=== PATIENT | male | born 1975 ===

== ENCOUNTER 2018-01-08 06:48 | Inpatient (IN) | payer OTHER ==
[2018-01-07 13:25] VITALS: BMI 24.7
[2018-01-08] MEDS ORDERED: Thrombin Topical 5,000 Int Units Spray Kit ONE (07:22)
[2018-01-08] MEDS ORDERED: Bupivacaine HCl 0.25% PF (30 ml) Inj ONE (07:22)
[2018-01-08] MEDS ORDERED: Bacitracin Ointment 30 GM TUBE ONE (07:22)
[2018-01-08] MEDS ORDERED: Absorbable Gelatin Sponge Size 12-7 ONE (07:22)
[2018-01-08] MEDS ORDERED: APROTININ/FIBRINOGEN(TISSEEL) ONE (07:23)
[2018-01-08] MEDS ORDERED: Lactated Ringer's 1,000 ML IV ONE ×2 (07:30→10:05)
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
[2018-01-08] MEDS ORDERED: Propofol 10 mg/ml Inj (20 ML) ONE (08:05)
[2018-01-08] MEDS ORDERED: Rocuronium 10 mg/ml (5 ml) ONE (08:06)
[2018-01-08] MEDS ORDERED: Succinylcholine 200 mg/10 ml Inj IV ONE (08:06)
[2018-01-08] MEDS ORDERED: Lidocaine 4% (Laryng-O-Jet) Kit MM ONE (08:06)
[2018-01-08] MEDS ORDERED: Midazolam 2 MG/2 ML VIAL ONE (09:10)
[2018-01-08] MEDS ORDERED: ePHEDrine 50 mg/ml Inj ONE (09:10)
[2018-01-08] MEDS ORDERED: Dexamethasone 4 mg/1 ml ONE (09:42)
[2018-01-08] MEDS ORDERED: Sevoflurane - Inhalation Anesthetic Liq (250 ml) ONE (09:49)
[2018-01-08] MEDS ORDERED: HEMOSTATIC MATRIX 10 ML DIS.NEEDLE TOP ONE (09:50)
[2018-01-08] MEDS ORDERED: Neostigmine Methylsulfate 2 MG/2 ML ML IV ONE (10:01)
[2018-01-08] MEDS: HYDROmorphone 0.5 mg/0.5 ml ISec IVP PRN ×3 (11:18→12:25)
[2018-01-08] MEDS ORDERED: Oxycodone/Acetaminophen 5/325 mg Tab PO PRN (11:18)
[2018-01-08] MEDS ORDERED: Benzocaine/Menthol (Cepacol) Lozenge PO PRN (11:25)
[2018-01-08] MEDS ORDERED: Glucagon Recombinant 1 mg Inj IM PRN (15:37)
[2018-01-08] MEDS ORDERED: Dextrose 50% SYRINGE Inj (50 ml) IV PRN (15:37)
[2018-01-08] MEDS: Lactated Ringer's 1,000 ML IV SCH ×2 (16:53→20:39)
[2018-01-08] MEDS ORDERED: ceFAZolin 1 GM in Sodium Chloride 0.9% 100 ML IVPB SCH (17:00)
[2018-01-08] MEDS: Insulin Regular 100 units/ml SC SCH ×2 (18:01→21:27)
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
--- NOTE | 2018-01-09 01:21 | OP ---
PROCEDURE DATE: 01/08/2018 PREOPERATIVE DIAGNOSIS: Lumbar herniated disc at L4-5. POSTOPERATIVE DIAGNOSIS: Lumbar herniated disc at L4-5. PROCEDURE: Left L4-5 hemilaminotomy, medial facetectomy, and decompression. SURGEON: Dr. Ahumada. BORE MILL OPERATOR FOR PLASTIC: Marla Yo, physician assistant infant toddler teacher who helped me perform the surgery and stayed throughout the case from the beginning to the end. Fluoroscopy has been used. Microscope has been used. DESCRIPTION OF PROCEDURE: The patient was brought to the operating room, anesthetized with general endotracheal anesthesia, placed in a prone position on a Ron table. Care was taken to protect all the pressure points. Back of the lumbar area was thoroughly prepped and draped in a standard sterile manner after marking the skin incision for lumbar lami at L4-5, also prepping and draping the area, skin has been incised. Bleeding skins have been controlled with bipolar life advisor. Using a Bovie life advisor, paraspinal muscles have been detached, attachments of spinous process and lamina of L4-5 in the left leg. A Avelina retractor has been applied to alter the facet joint of L4-L5. Fluoroscopy has been used in order to confirm this level. Under microscopic examination by using a high speed drill, the lamina at the L4-5 have been drilled. Drilling was continued until the top and bottom of the ligamentum flavum was seen. Drilling was also continued on the medial part of the facets until the turn of the ligamentum had been seen. Once this has been done, thinned out the lamina, medial part of the facets and ligamentum flavum has been removed. Decompressing had been achieved. Foraminotomy was performed and at this point the disk space has been examined. There was a disk herniation noted. However, there was no extruded fragment hence no diskectomy has been done, but foraminotomy has produced good relaxation of the nerve. After that hemostasis was best achieved. Fascia across the interspinous ligaments and spinous process with 1-Vicryl, subcutaneous tissue with 3-Vicryl. Skin had been closed with intradermal 3 Vicryl stitches. Griffni Ahumada MD [facility] # [id number]
[2018-01-09 08:03] VITALS: RESP 20; TEMP 98.5
[2018-01-09] MEDS: Insulin Regular 100 units/ml SC SCH ×2 (08:38→11:34)
[2018-01-09] MEDS: Lactated Ringer's 1,000 ML IV SCH ×2 (10:03→11:03)
[2018-01-09 10:39] LABS: BASO # 0.1 K/uL (0.0-0.2); BASO % 0.6 % (0.0-2.0); EOS % 0.1 % (0.0-4.0); HEMOGLOBIN 13.2 g/dL (12.0-18.0); LYMPH # 2.3 K/uL (1.0-4.3); LYMPH % 17.6 % (20.0-40.0); MEAN CELL VOLUME 88.1 fl (80.0-94.0); MEAN CORPUSCULAR HEMOGLOBIN 29.4 pg (27.0-31.0); MEAN CORPUSCULAR HGB CONC 33.4 g/dL (33.0-37.0); MEAN PLATELET VOLUME 9.4 fl (7.2-11.7); MONO # 1.3 K/uL (0.0-0.8); MONO % 9.9 % (0.0-10.0); NEUT # 9.5 K/uL (1.8-7.0); NEUT % 71.8 % (50.0-75.0); RBC 4.5 Mil/uL (4.40-5.90); RED CELL DISTRIBUTION WIDTH 13.9 % (11.5-14.5); WHITE BLOOD COUNT 13.3 K/uL (4.8-10.8)
[2018-01-09 11:15] VITALS: BP 158/90; PULSE 85; O2SAT 98
--- NOTE | 2018-01-09 11:23 | CARD ---
APPROVED REPORT EKG Measurement Heart [id number] <Conclusion> Sinus tachycardia Possible Left atrial enlargement Nonspecific ST abnormality Abnormal ECG
--- NOTE | 2018-01-09 13:22 | CP.PCM.DIS ---
Provider - Provider Date of Admission: 01/08/18 11:13 Attending physician: Delmer Collins MD Primary care physician: Griffin Ahumada MD Time Spent in preparation of Discharge (in minutes): 30 Diagnosis - Discharge Diagnosis (1) S/P laminectomy Status: Acute (2) Lumbar herniated disc Status: Acute (3) Lumbar radiculopathy Status: Acute Hospital Course - Lab Results Lab Results: Most Recent Lab Values WBC 13.3 K/uL (4.8-10.8) H 01/09/18 10:25 RBC 4.50 Mil/uL (4.40-5.90) 01/09/18 10:25 Hgb 13.2 g/dL (12.0-18.0) 01/09/18 10:25 Hct 39.7 % (35.0-51.0) 01/09/18 10:25 MCV 88.1 fl (80.0-94.0) 01/09/18 10:25 MCH 29.4 pg (27.0-31.0) 01/09/18 10:25 MCHC 33.4 g/dL (33.0-37.0) 01/09/18 10:25 RDW 13.9 % (11.5-14.5) 01/09/18 10:25 Plt Count 188 K/uL (130-400) 01/09/18 10:25 MPV 9.4 fl (7.2-11.7) 01/09/18 10:25 Neut % (Auto) 71.8 % (50.0-75.0) 01/09/18 10:25 Lymph % (Auto) 17.6 % (20.0-40.0) L 01/09/18 10:25 [place] % (Auto) 9.9 % (0.0-10.0) 01/09/18 10:25 Eos % (Auto) 0.1 % (0.0-4.0) 01/09/18 10:25 Baso % (Auto) 0.6 % (0.0-2.0) 01/09/18 10:25 Neut # (Auto) 9.5 K/uL (1.8-7.0) H 01/09/18 10:25 Lymph # (Auto) 2.3 K/uL (1.0-4.3) 01/09/18 10:25 [place] # (Auto) 1.3 K/uL (0.0-0.8) H 01/09/18 10:25 Eos # (Auto) 0.0 K/uL (0.0-0.7) 01/09/18 10:25 Baso # (Auto) 0.1 K/uL (0.0-0.2) 01/09/18 10:25 POC Glucose (mg/dL) 126 mg/dL (65-110) H 01/09/18 11:01 Blood Type O POSITIVE 01/08/18 07:30 Blood Type Confirm O POSITIVE 01/08/18 08:55 Antibody Screen Negative 01/08/18 07:30 BBK History Checked No verified bt 01/08/18 07:30 - Hospital Course Hospital Course: 42 YO M w/ lumbar spondylosis s/p decompressive laminectomy left L4-5 is doing well on POD1. He has been ambulating with no problems. He has tolerated regular diet, with no N/V. Patient is doing well. No drains were placed. Patient has remained afebrile overnight Discharge Exam - Head Exam Head Exam: NORMAL INSPECTION - Respiratory Exam Respiratory Exam: Clear to PA & Lateral, NORMAL BREATHING PATTERN. absent: Wheezes - Cardiovascular Exam Cardiovascular Exam: REGULAR RHYTHM, +S1, +S2 - Back Exam Additional comments: surgical site C/D/I - Neurological Exam Neurological exam: Alert, CN II-XII Intact, Oriented x3 - Skin Skin Exam: Normal Color, Warm Discharge Plan - Discharge Medications Prescriptions: oxyCODONE/Acetaminophen [Percocet 5/325 mg Tab] 1 tab PO Q6 #15 tab - Follow Up Plan Condition: GOOD Disposition: HOME/ ROUTINE Instructions: Laminectomy (DC), Abdominal Binder (DC), Lumbar Discectomy (DC) Additional Instructions: follow up with Dr. Ahumada 7-10 days maintain dressing intact and dry to back for 3 days, remove in 3 days and may shower then Referrals: Griffin Ahumada MD [Primary Care Provider] - Delmer Collins MD [Staff Provider] -
--- NOTE | 2018-01-09 14:02 | RAD ---
PROCEDURE: Fluoroscopy up to 1 hr. HISTORY: LUMBAR LAMINECTOMY COMPARISON: None TECHNIQUE: Total fluoroscopic time (continuous mode) utilized during the procedure: 3.0 FINDINGS: Submitted images from the current procedure: 1.0 IMPRESSION: Total exam DLP: (mGy): 1.29
== END 2018-01-09 12:50 | disposition home or self-care (01) | DRG 520 ==
LOC: H.OPSURG 06:48 → H.MEDSURG1 11:13
PROVIDERS: ADMIT Family Medicine; ATTEND Family Medicine
PROC: 00NY0ZZ Release Lumbar Spinal Cord, Open Approach (ICD-10-PCS; principal; 2018-01-08 09:45)
DX: M51.16 Intervertebral disc disorders with radiculopathy, lumbar region (principal); M47.26 Other spondylosis with radiculopathy, lumbar region; E11.9 Type 2 diabetes mellitus without complications; I10 Essential (primary) hypertension; F17.210 Nicotine dependence, cigarettes, uncomplicated